=== PATIENT | male | born 1950 | race Caucasian/White ===

== ENCOUNTER 2017-02-09 12:51 | Emergency (ER) | payer OTHER ==
[~2017-02-09] VITALS: Ht 187.9 cm; Wt 97.5 kg
[~2017-02-09 12:51] MED LIST: VICODIN 5/500 505 MG PO
[2017-02-09] MEDS ORDERED: LIPITOR10 MG PO (12:58)
[2017-02-09] MEDS ORDERED: LISINOPRIL10 M1 PO (12:58)
[2017-02-09] MEDS ORDERED: PRILOSEC20 M1 PO (12:58)
== END 2017-02-09 15:04 | disposition home or self-care (01) ==
LOC: ED 12:51
DX: M54.5 Low back pain (principal); R05 Cough; F17.200 Nicotine dependence, unspecified, uncomplicated; Z79.899 Other long term (current) drug therapy